=== PATIENT | male | born 1965 | race Caucasian/White ===

== ENCOUNTER 2019-09-06 05:15 | Day surgery (SDC) ==
--- NOTE | 2019-08-31 09:50 | EKG Report ---
Test Performed on : 08/31/2019 09:37:47 AM Test Reason : PAT Blood Pressure : / mmHG Vent. Rate : 073 BPM Atrial Rate : 073 BPM P-R Int : 138 ms QRS Dur : 106 ms QT Int : 376 ms P-R-T Axes : 041 041 049 degrees QTc Int : 414 ms Normal sinus rhythm. Normal ECG When compared with ECG of 09-MAY-2013 14:22, No significant change was found Confirmed by Hugh CUTLER, Kyle Ma ([id number]) on 09/02/2019 2:32:58 PM
[2019-08-31 10:51] LABS: HEMATOCRIT 42.4 % (42.0-52.0); HEMOGLOBIN 14.1 g/dL (14.0-18.0); MCH 29.4 PG (27-31); MCHC 33.3 g/dL (33-37); MCV 88.5 FL (81-99); RBC 4.79 XMIL (4.7-6.1); RDW 12.9 % (11.5-14.5); WBC 7.06 X1000 (4.8-10.8)
[2019-08-31 11:14] LABS: AGAP 14; BUN 12 mg/dL (8-22); CALCIUM 10.1 mg/dL (8.8-10.2); CHLORIDE 101 mmol/L (98-107); COSMO 283; ESTIMATED GFR > 60; GLUCOSE 98 mg/dL (70-104); POTASSIUM 4.1 mmol/L (3.5-5.1); SODIUM 142 mmol/L (136-145); TCO2 27 mmol/L (25-35)
[2019-09-06] MEDS ORDERED: REGLAN ONE (05:39)
[2019-09-06] MEDS ORDERED: PEPCID ONE (05:39)
[2019-09-06] MEDS ORDERED: LR 1,000 ML ONE ×2 (05:39→06:38)
[2019-09-06] MEDS ORDERED: KEFZOL 1 GM/D5W 2 GM/100 ML IVPB ONE (05:39)
[2019-09-06] MEDS ORDERED: VERSED ONE (06:19)
[2019-09-06] MEDS ORDERED: DIPRIVAN 1% ONE (06:20)
[2019-09-06] MEDS ORDERED: SODIUM CHLORIDE 0.9% 10 ML ONE (06:20)
[2019-09-06] MEDS ORDERED: FENTANYL ONE ×2 (06:20→09:56)
[2019-09-06] MEDS ORDERED: XYLOCAINE-MPF 2% ONE (06:20)
[2019-09-06] MEDS ORDERED: QUELICIN (DOSE) ONE (06:20)
[2019-09-06] MEDS ORDERED: NORCURON ONE ×2 (06:20→09:09)
[2019-09-06] MEDS ORDERED: ROBINUL ONE ×2 (06:26→08:10)
[2019-09-06] MEDS ORDERED: SENSORCAINE-MPF 0.5%/EPI 1:200,000 ONE (06:38)
[2019-09-06] MEDS ORDERED: B & O 16A SUPP ONE (06:40)
[2019-09-06] MEDS ORDERED: EPHEDRINE ONE (07:31)
[2019-09-06] MEDS ORDERED: DECADRON ONE (07:32)
[2019-09-06] MEDS ORDERED: NEOSTIGMINE ONE (08:10)
[2019-09-06 08:30] LABS: URINE SOURCE CATH
[2019-09-06 08:35] LABS: BILIRUBIN URINE NEGATIVE (NEGATIVE); BLOOD URINE NEGATIVE (NEGATIVE); COLOR YELLOW; GLUCOSE URINE NEGATIVE (NEGATIVE); KETONE URINE NEGATIVE (NEGATIVE); LEUKOCYTES URINE NEGATIVE (NEGATIVE); NITRITE URINE NEGATIVE (NEGATIVE); PH URINE 7.5; PROTEIN URINE NEGATIVE (NEGATIVE); TURBIDITY URINE CLEAR (CLEAR); UROBILINOGEN URINE NORMAL (NORMAL)
[2019-09-06 08:37] LABS: UR EPITHELIAL CELLS <10 /HPF (<10); URINE BACTERIA NEGATIVE /HPF; URINE RBC <10 /HPF (<10); URINE WBC <10 /HPF (<10)
[2019-09-06] MEDS ORDERED: ZOFRAN ONE (10:47)
[2019-09-06] MEDS ORDERED: OFIRMEV 1000 MG/ISOTONIC SOLN 1,000 MG/100 ML BOTTLE ONE (11:06)
[2019-09-06] MEDS: DILAUDID ONE ×3 (11:41→12:04)
[2019-09-06] MEDS ORDERED: NS 1,000 ML ONE (12:17)
--- NOTE | 2019-09-06 12:52 | OPERATIVE NOTE ---
PROCEDURE DATE: 09/06/2019 SURGEON: Sulaiman Williamson M.D. PREOPERATIVE DIAGNOSIS: Prostate cancer. POSTOPERATIVE DIAGNOSIS: Prostate cancer. PROCEDURES PERFORMED: 1. Laparoscopic robot-assisted nerve-sparing radical retropubic prostatectomy. 2. Modified bilateral pelvic lymph node dissection. 3. Urethral suspension. ANESTHESIA: General endotracheal. FINDINGS: Normal-appearing prostate with attached seminal vesicle vas deferens. The prostate was very adhered at the apical end. Lymph nodes appeared normal. INDICATIONS FOR PROCEDURE: This 54-year-old male had a history of elevated PSA. Transrectal prostate ultrasound and biopsies revealed adenocarcinoma, Isaban grade 3 + 3 and 3 + 4. The various treatments for prostate cancer were discussed with the patient, and he decided on radical surgery with pelvic lymph node dissection. DESCRIPTION OF PROCEDURE: After informed consent was obtained from the patient and him receiving IV antibiotics, he was taken to the main OR, placed in the supine position. General anesthesia via endotracheal tube was achieved. He was then prepped and draped in the usual sterile fashion for abdominal, penile, and perineal surgery. He was placed in the low lithotomy position. A 16- [place] Persaud catheter was then passed through the patient's urethra, prostate, and into the bladder, and 10 mL of sterile water were placed in the Persaud's balloon. The Persaud was placed to gravity drain. Pneumoperitoneum was achieved with the Veress needle that was placed just above the umbilicus, in the incision that was used for the camera port. After pneumoperitoneum was achieved, the Visiport was used to enter the abdomen. The 30-degree lens was placed. The robot trocars were placed in the standard position, with the #4 arm just above the right anterior superior iliac spine, the #1 arm to the right of midline, one handbreadth lateral to the camera port. The #2 arm was placed two handbreadths to the left of the camera port. The administrative assistant receptionist port was placed in the left epigastric area, and it was a 12 mm port. After the robot ports were placed, the patient was placed in steep Trendelenburg, and the table lowered all the way. The robot was docked. The procedure was started by taking down some physiologic adhesions from the left colon. The fourth arm was used to pull the colon and rectum cephalad. An incision was made where the peritoneum reflected off of the rectum, about 2 cm above this reflection. This was taken back to the seminal vesicles and vas deferens. These were bluntly and sharply dissected free. The vas deferens was incised, and the artery to the vas cauterized. The vascular pedicle to the seminal vesicles was clipped, and the seminal vesicle incised and dissected back to the base of the prostate. Both sides were accomplished similarly. Denonvilliers fascia was entered in the midline, and dissected off of the rectum, a small amount on each side. Attention was then turned to the anterior abdominal wall, where an incision was made in the peritoneum, just medial to the internal inguinal ring, and this incision was extended down to the vas deferens as it went into the pelvis and up on the anterior abdominal wall, following the medial umbilical ligament. Both sides were accomplished similarly. The medial umbilical ligament was incised, going across through the medial umbilical ligament and to the opposite side medial umbilical ligament. The bladder was then dropped off the anterior abdominal wall. The fibrofatty tissue off the lateral and anterior surface of the prostate was removed. The endopelvic fascia was entered lateral to the prostate, and this incision was extended back to the base of the prostate, and up to the puboprostatic ligaments. Puboprostatic ligaments were taken down sharply. The levator ani muscle was bluntly pushed off the sides of the prostate. Both sides were accomplished similarly. A 0 V- Loc suture was then passed under the dorsal vein complex, through the tail of the eye of V-Loc suture. The V-Loc suture was tightened. It was passed under the dorsal vein complex again, then through the periosteum of the pubis, then back under the dorsal vein complex, and back through the periosteum of the pubis. Attention was then turned to the bladder neck area, where the bladder was sharply dissected off the base of the prostate. The bladder was entered. The Persaud catheter was then pulled back and brought up and grasped with the fourth arm to act as a traction device. The posterior bladder was dissected off the base of the prostate. The bladder neck was incised with the electrocautery, and the dissection was taken down to the previously dissected space, where the seminal vesicles and vas deferens were located. After this space was entered, the seminal vesicles and vas deferens were brought up through this area. The pedicles to the prostate were taken down with clips, and the prostate was dissected off the rectum, all way back to the apex of the prostate. Again, the apex was somewhat adhered, and this had to be taken down sharply. After the prostate was dissected off the rectum to the apex, attention was then turned to the anterior portion the apex, where the dorsal vein complex, as it spread out over the apex of the prostate, was cauterized with the bipolar cautery, and this was incised to under the suture that was used to tie off the dorsal vein complex. The urethra was exposed, and it was incised 2 mm distal to the prostatic apex. The posterior urethra was then incised, and the remaining fibers of the rectourethralis muscle were incised. Again, the prostate was very adhered to this area, and had to be sharply removed. The prostate was moved to the side. The node dissection was performed, first on the left side, removing inoecncia tissue off the medial side of the external iliac vein, down to the node of [place], and then back up to the bifurcation of the external and internal iliac veins. The tissue was removed from the medial side of the pelvic bone, down to the obturator nerve. Lymphostasis and hemostasis was achieved with electrocautery and clips. At completion, the obturator nerve was intact. The area was packed with Surgicel SNoW. Both sides were accomplished similarly. The left side tissue was placed in the Endo Catch retrieval bag with the prostate. The right side was just passed off the field through the administrative assistant receptionist port. Attention was then turned to the bladder neck area. The vesicovisceral fascia was reattached to the posterior rhabdosphincter using a running suture of 3-0 V-Loc suture. After this was placed, each end of the suture was moved to the side. This will act to suspend the bladder neck at completion of the case. The bladder was anastomosed to the urethra using a 3-0 V-Loc suture in a running fashion. An 18-[place] Persaud catheter was passed through the patient's urethra and into the bladder, and 10 mL of sterile water were placed in the Persaud's balloon. The bladder was irrigated and distended to 60 mL. No leakage was seen. The Persaud catheter was placed to gravity drain. The previously placed sutures that attach the vesicovisceral fascia to the posterior rhabdosphincter, the left side was passed through the left side, the periosteum of the pubis; the right side was passed through the right side, the periosteum of the pubis. Tension was placed on the sutures that acted to suspend the bladder neck. The needles were removed and passed off the field. All needle counts were correct. Surgicel SNoW was then used to pack each side of the bladder. The robot trocars were removed. The Endo Catch retrieval bag string was brought from the administrative assistant receptionist port, out through the camera port. After the robot trocars were then removed, the pneumoperitoneum was resolved. The patient was taken out of Trendelenburg, and the robot was moved to the side. The camera port incision was extended for a distance of about 4 cm. The EndoCatch retrieval bag string was pulled, and the specimen removed and sent to Pathology. The abdominal rectus fascia was reapproximated with interrupted sutures of #1 [place]. The skin was reapproximated with clips. Island dressings were placed. He tolerated the procedure well. Estimated blood loss was 300 mL. He was taken to the recovery room in good condition. cc: Sulaiman Williamson MD
[2019-09-06] MEDS ORDERED: DITROPAN PO PRN (13:30)
[2019-09-06] MEDS ORDERED: LABETALOL IV PRN (13:30)
[2019-09-06] MEDS ORDERED: SODIUM CHLORIDE 0.9% INJ PRN (13:30)
[2019-09-06] MEDS ORDERED: OXY IR PO PRN (13:30)
[2019-09-06] MEDS ORDERED: PHENERGAN IV PRN (13:30)
[2019-09-06] MEDS ORDERED: BENADRYL LIQUID PO PRN (13:30)
[2019-09-06] MEDS ORDERED: D50W SYRINGE IV ONE (15:09)
[2019-09-06] MEDS: KEFZOL 2 GM/D5W 2 GM/50 ML IVPB IV SCH ×2 (15:19→23:25)
[2019-09-06] MEDS: NS 1,000 ML IV SCH ×3 (15:59→23:36)
[2019-09-06] MEDS ORDERED: OFIRMEV 1000 MG/ISOTONIC SOLN 1,000 MG/100 ML BOTTLE IV PRN (17:00)
[2019-09-06] MEDS: HUMULIN R SUBQ SCH ×2 (17:36→23:36)
[2019-09-06] MEDS ORDERED: AMARYL PO SCH (21:00)
[2019-09-06] MEDS: PERIDEX MT SCH (22:09)
[2019-09-06] MEDS: COLACE PO SCH (22:10)
[2019-09-06] MEDS: PEPCID PO SCH (22:10)
[2019-09-06] MEDS: GLUCOPHAGE PO SCH (22:10)
[2019-09-07] MEDS: OXY IR PO PRN ×2 (01:01→05:06)
[2019-09-07] MEDS: HUMULIN R SUBQ SCH (06:42)
[2019-09-07] MEDS ORDERED: PRILOSEC PO SCH (07:00)
[2019-09-07 07:11] LABS: HEMATOCRIT 36.2 % (42.0-52.0); HEMOGLOBIN 11.6 g/dL (14.0-18.0); MCH 29.1 PG (27-31); MPV 9.7 FL (7.4-10.4); RBC 3.98 XMIL (4.7-6.1); WBC 9.44 X1000 (4.8-10.8)
[2019-09-07 07:28] LABS: AGAP 9; BUN 11 mg/dL (8-22); CALCIUM 8.5 mg/dL (8.8-10.2); CHLORIDE 104 mmol/L (98-107); COSMO 281; ESTIMATED GFR > 60; GLUCOSE 109 mg/dL (70-104); SODIUM 141 mmol/L (136-145); TCO2 28 mmol/L (25-35)
[2019-09-07] MEDS: PERIDEX MT SCH ×2 (07:44→10:52)
[2019-09-07] MEDS: NORVASC PO SCH ×2 (07:55→10:52)
[2019-09-07] MEDS: GLUCOPHAGE PO SCH ×2 (07:55→10:52)
[2019-09-07] MEDS: COLACE PO SCH ×2 (07:55→10:52)
[2019-09-07] MEDS: PRINZIDE 20/12.5MG PO SCH ×2 (07:55→10:52)
[2019-09-07] MEDS: PEPCID PO SCH ×2 (07:56→10:52)
[2019-09-07 08:31] VITALS: BP 119/77
[2019-09-07] MEDS ORDERED: PRAVACHOL PO SCH (21:00)
== END 2019-09-07 11:26 | disposition home or self-care (01) ==
LOC: 4N 05:15 → OR 05:15
PROVIDERS: ATTEND Urology